=== PATIENT | female | born 2000 | race Caucasian/White ===

== ENCOUNTER 2021-11-14 08:47 | Emergency (ER) | payer MEDICAID ==
[~2021-11-14] VITALS: Ht 167.6 cm; Wt 68.0 kg
[2021-11-14] MEDS ORDERED: TETANUS, DIPHTHERIA, PERTUSSIS VAC/PF 0.5ML (>10YR OLD) IM ONE (09:30)
[2021-11-14] MEDS ORDERED: IBUPROFEN 600MG TABLET PO ONE (09:30)
[2021-11-14] MEDS ORDERED: IBUP-2029 MT (11:08)
[2021-11-14] MEDS ORDERED: AMOX-424 MT (11:08)
[2021-11-14 11:33] VITALS: BP 106/86
== END 2021-11-14 11:35 | disposition home or self-care (01) ==
LOC: ER 09:01
DX: S61.214A Laceration without foreign body of right ring finger without damage to nail, initial encounter (principal); S60.221A Contusion of right hand, initial encounter; X78.0XXA Intentional self-harm by sharp glass, initial encounter; Y93.89 Activity, other specified; Y92.9 Unspecified place or not applicable
CPT/HCPCS: 12001; 73130; 90471; 90715; 99283; Z7610